=== PATIENT | male | born 1965 | race Caucasian/White ===

== ENCOUNTER 2020-05-12 07:37 | Outpatient (CLI) | payer OTHER ==
[~2020-05-12 07:37] MED LIST: ASPI-430 PO; METO-93; NITR0.4T28; SIMV80TA18
[2020-05-12] MEDS ORDERED: REGADENOSON 0.4 MG/5 ML SYRINGE ONE (11:53)
== END 2020-05-12 23:59 | disposition home or self-care (01) ==
LOC: CFH 07:37
PROVIDERS: ATTEND Internal Medicine Cardiovascular Disease
DX: I25.10 Atherosclerotic heart disease of native coronary artery without angina pectoris (principal)
CPT/HCPCS: 78452; 93017; A9502; J2785